=== PATIENT | male | born 1955 | race African-American/Black ===

== ENCOUNTER 2022-02-26 15:36 | Emergency (ER) | payer OTHER, MEDICAID ==
[~2022-02-26] VITALS: Ht 170.2 cm; Wt 73.0 kg
[2022-02-26 15:39] VITALS: BP 148/83
[2022-02-26 18:41] LABS: BASOPHILS % 1.1 % (0.0-2.0); HEMATOCRIT. 31.1 % (42.0-52.0); HEMOGLOBIN. 10.4 g/dL (14.0-18.0); LYMPHOCYTES % 17.4 % (20.0-50.0); MEAN CORPUSCULAR VOLUME 89.6 fL (80.0-94.0); MEAN PLATELET VOLUME 9.9 fl (7.4-10.4); MONOCYTES % 12.1 % (2.0-8.0); NEUTROPHILS % 66.4 % (40.0-76.0); PLATELET 215 x1000/uL (130-400); RED BLOOD CELL COUNT 3.47 mill/uL (4.7-6.1); RED CELL DISTRIBUTION WIDTH 15.2 % (11.6-14.6)
[2022-02-26 18:50] LABS: CHLORIDE 111 mEq/L (98-107)
[2022-02-26 18:58] LABS: ETHANOL BLOOD < 10 mg/dL
== END 2022-02-26 20:06 | disposition home or self-care (01) ==
LOC: ER 15:36
DX: R53.1 Weakness (principal); R46.89 Other symptoms and signs involving appearance and behavior; I10 Essential (primary) hypertension
CPT/HCPCS: 36415; 80053; 80307; 80320; 80329; 85025; 99283; G0480